=== PATIENT | male | born 1975 | race Caucasian/White ===

== ENCOUNTER → 2017-07-04 | Outpatient (CLI) | payer BC ==
[~2017-07-04] MED LIST: IOHEXOL 240 MG/ML 50ML VIAL. ONE; IOHEXOL 240 MG/ML 50ML VIAL. PO ONE; IOHEXOL 300 MG/ML 75 ML VIAL. IV ONE
--- NOTE | 2017-07-04 12:12 | RAD ---
Indication: Chronic abdominal pain, epigastric discomfort, right upper quadrant and left upper quadrant pain. History of hernia surgery years ago. Technique: CT abdomen and pelvis with 30 mL of Omnipaque 240 with multiplanar reformats. Comparison: Study from 2012 Findings: Heart is normal in size. No pericardial or pleural effusion. Clear lung bases. Scattered too small to characterize low attenuating foci seen in the liver likely cystic biliary hematomas. Spleen is nonenlarged and show no focal lesion. No radiopaque gallstones. Pancreas within normal limits. Adrenal glands show no nodularity. No hydronephrosis. 2.4 cm simple left renal cyst. No nephrolithiasis. No retroperitoneal or pelvic adenopathy. No bowel obstruction. Diffuse colonic diverticulosis. Normal appendix. Small omental fat-containing medical hernia. Bladder within normal limits. Prostate and seminal vesicles show no mass lesion. No suspicious bony lesions. Degenerative disc disease noted at L5-S1. Impression: 1. No acute findings. 2. Diffuse colonic diverticulosis without diverticulitis. PQRS Compliance Statement: One or more of the following individualized dose reduction techniques were utilized for this examination: 1. Automated exposure control 2. Adjustment of the mA and/or kV according to patient size 3. Use of iterative reconstruction technique
== END | disposition home or self-care (01) ==
LOC: CT 08:01
PROVIDERS: ATTEND Physician Assistant
DX: K57.30 Diverticulosis of large intestine without perforation or abscess without bleeding (principal); N28.1 Cyst of kidney, acquired; M47.897 Other spondylosis, lumbosacral region
CPT/HCPCS: 74177; Q9966; Q9967

== ENCOUNTER 2018-04-13 09:58 | Observation (INO) | payer BC ==
[~2018-04-13] VITALS: Ht 182.9 cm; Wt 84.9 kg
--- NOTE | 2018-04-13 10:14 | EKG ---
[address] [address] Test Date: 2018-04-13 Test Time: 10:09:24 Pat Name: JOBY ROBLEDO Department: Room: Gender: M [employer]el Seat [employer] Machine: : [id number] Requested By: ELIEL MARINA Order Number: [id number] Reading MD: James Mooney Measurements Intervals [place] Rate: 61 P: 54 LA: 138 QRS: 56 QRSD: 86 T: 62 QT: 392 QTc: 400 Interpretive Statements SINUS RHYTHM VENTRICULAR PREMATURE COMPLEX(ES) Electronically Signed On 04-17-2018 11:57:13 CDT by James Mooney
[2018-04-13 10:28] LABS: BASO % 0 % (0-3); EOS # 0.1 x10^3/uL (0.0-0.7); EOS % 1 % (0-3); HEMOGLOBIN 16.2 g/dL (13.0-17.5); LYMPH # 1.9 x10^3/uL (1.0-4.8); LYMPH % 25 % (24-48); MEAN CORPUSCULAR HEMOGLOBIN 31 pg (25-35); MEAN CORPUSCULAR HGB CONC 34 g/dL (31-37); MEAN CORPUSCULAR VOLUME 93 fL (79-100); MONO # 0.4 x10^3/uL (0.0-1.1); MONO % 6 % (0-9); NEUT # 4.9 x10^3uL (1.8-7.7); NEUT % 67 % (31-73); PLATELET COUNT 225 x10^3/uL (140-400); RED BLOOD COUNT 5.18 x10^6/uL (4.30-5.70); RED CELL DISTRIBUTION WIDTH 13.4 % (11.5-14.5); WHITE BLOOD COUNT 7.3 x10^3/uL (4.0-11.0)
[2018-04-13 10:50] LABS: ALBUMIN/GLOBULIN RATIO 1.1 (1.0-1.7); CALCIUM 9.5 mg/dL (8.5-10.1); CREATININE 0.9 mg/dL (0.7-1.3); GFR 93.5; POTASSIUM 4.3 mmol/L (3.5-5.1); TOTAL BILIRUBIN 0.8 mg/dL (0.2-1.0); TOTAL PROTEIN 7.5 g/dL (6.4-8.2)
--- NOTE | 2018-04-13 10:53 | RAD ---
EXAM: CHEST 1 VIEW History: Chest pain COMPARISON: None available. TECHNIQUE: Single portable radiograph of the chest FINDINGS: The cardiac silhouette is unremarkable. The lungs are clear bilaterally. The costophrenic sulci are clear and well demarcated. IMPRESSION: No radiographic evidence of an acute cardiopulmonary process. Electronically signed by: Kai Holman MD (04/13/2018 10:49 AM) [id number]
[2018-04-13 11:42] VITALS: BP 116/77
--- NOTE | 2018-04-13 14:56 | ED.ADGEN ---
Past History Past Medical History: No Pertinent History Past Surgical History: No Surgical History Additional Smoking Information: /2 PPD Alcohol Use: Rarely Drug Use: Marijuana Adult General Chief Complaint Chief Complaint Chest wall pain, palpitations HPI HPI Patient is a 42-year-old male presents with left-sided numbness and left arm with intermittent palpitations since yesterday. No shortness breath, nausea, sweats. No neck pain, reticular pain, motor weakness. No other acute symptoms or complaints. Patient is currently pain-free.[] Review of Systems Review of Systems ROS as per HPI. All other systems were reviewed and found to be within normal limits, except as documented in this note. Allergies Allergies Allergies Coded Allergies Type Severity Reaction Last Updated Verified No Known Drug Allergies 07/04/17 No Physical Exam Physical Exam Constitutional: Well developed, well nourished, no acute distress, non-toxic appearance. [] HENT: Normocephalic, atraumatic, bilateral external ears normal, oropharynx moist, no oral exudates, nose normal. [] Eyes: PERRLA, EOMI, conjunctiva normal, no discharge. [] Neck: Normal range of motion, no tenderness, supple, no stridor. [] Cardiovascular:Heart rate regular rhythm, no murmur, occasional ectopy [] Lungs & Thorax: Bilateral breath sounds clear to auscultation [] Abdomen: Bowel sounds normal, soft, no tenderness. [] Extremities: No tenderness, negative Homans signs. [] Neurologic: Alert and oriented X 3, normal motor function, normal sensory function, no focal deficits noted. [] Psychologic: Affect normal, judgement normal, mood normal. [] Current Patient Data Vital Signs Vital Signs Date Time Temp Pulse Resp B/P (MAP) Pulse Ox O2 Delivery O2 Flow Rate FiO2 04/13/18 11:13 61 16 114/66 (82) 97 Lab Results Laboratory Tests Test 04/13/18 10:17 White Blood Count 7.3 x10^3/uL (4.0-11.0) Red Blood Count 5.18 x10^6/uL (4.30-5.70) Hemoglobin 16.2 g/dL (13.0-17.5) Hematocrit 48.0 % (39.0-53.0) Mean Corpuscular Volume 93 fL (79-100) Mean Corpuscular Hemoglobin 31 pg (25-35) Mean Corpuscular Hemoglobin Concent 34 g/dL (31-37) Red Cell Distribution Width 13.4 % (11.5-14.5) Platelet Count 225 x10^3/uL (140-400) Neutrophils (%) (Auto) 67 % (31-73) Lymphocytes (%) (Auto) 25 % (24-48) Monocytes (%) (Auto) 6 % (0-9) Eosinophils (%) (Auto) 1 % (0-3) Basophils (%) (Auto) 0 % (0-3) Neutrophils # (Auto) 4.9 x10^3uL (1.8-7.7) Lymphocytes # (Auto) 1.9 x10^3/uL (1.0-4.8) Monocytes # (Auto) 0.4 x10^3/uL (0.0-1.1) Eosinophils # (Auto) 0.1 x10^3/uL (0.0-0.7) Basophils # (Auto) 0.0 x10^3/uL (0.0-0.2) Sodium Level 139 mmol/L (136-145) Potassium Level 4.3 mmol/L (3.5-5.1) Chloride Level 104 mmol/L (98-107) Carbon Dioxide Level 30 mmol/L (21-32) Anion Gap 5 (6-14) L Blood Urea Nitrogen 10 mg/dL (8-26) Creatinine 0.9 mg/dL (0.7-1.3) Estimated GFR (Cockcroft-Gault) 93.5 BUN/Creatinine Ratio 11 (6-20) Glucose Level 95 mg/dL (70-99) Calcium Level 9.5 mg/dL (8.5-10.1) Total Bilirubin 0.8 mg/dL (0.2-1.0) Aspartate Amino Transferase (AST) 19 U/L (15-37) Alanine Aminotransferase (ALT) 34 U/L (16-63) Alkaline Phosphatase 66 U/L (46-116) Troponin I Quantitative < 0.017 ng/mL (0-0.055) UB-Vux-Q-Type Natriuretic Peptide 61 pg/mL (0-124) Total Protein 7.5 g/dL (6.4-8.2) Albumin 4.0 g/dL (3.4-5.0) Albumin/Globulin Ratio 1.1 (1.0-1.7) EKG EKG [EKG: NAD ] Radiology/Procedures Radiology/Procedures CXR: NAD] Course & Med Decision Making Course & Med Decision Making Pertinent Labs and Imaging studies reviewed. (See chart for details) [No acute labs findings, ST segment elevation consistent with early repolarization. Will admit to the hospitalist service for further evaluation or tx. ] Final Impression Final Impression [1. Chest pain] Bia Disclaimer Dragon Disclaimer This electronic medical record was generated, in whole or in part, using a voice recognition dictation system. ELIEL MARINA DO Apr 13, 2018 14:56
[2018-04-13 16:38] VITALS: BP 125/72
--- NOTE | 2018-04-13 17:10 | PDOC2 ---
CONSULT Date of Admission DATE: 04/13/18 TIME: 17:05 Reason for Consult: cp History of Present Illness Mr Ritter is a 42 year old male seen by PCP with complaints of chest pain off and on with some arm numbness and tingling from elbow to hand. He was found to have PVCs on EKG and sent to ED for evaluation and admission. He reports dyspnea and racing of heart with minimal exertion over the last several weeks. He reports chest discomfort occasionally which is a dull left sided pain lasting only seconds to a minute without radiation or associated symptoms. He denies any correlation with exertion. He complains of mild numbness and tingling in his left arm from elbow to hand. 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 He denies any congestive symptoms , lightheadedness or syncope. Cardiovascular: No pertinent hx Pulmonary: No pertinent hx GI: No pertinent hx Heme/Onc: No pertinent hx Hepatobiliary: No pertinent hx Psych: No pertinent hx Musculoskeletal: No pertinent hx Rheumatologic: No pertinent hx Infectious disease: No pertinent hx ENT: No pertinent hx Renal/: No pertinent hx Endocrine: No pertinent hx Dermatology: No pertinent hx Past Surgical History no history Family History premature coronary disease on father side. Social History 1/2 ppd smoker, no significant ETOH, no significant illicit drug use Current Medications Current Medications Aspirin (Aspirin Enteric Coated) 81 mg DAILYWBKFT PO ; Start 04/14/18 at 08:00 Active Scripts Active Reported No Known Medications Prior To Admisstion (Info) Each 1 Each Allergies: Coded Allergies: No Known Drug Allergies (Unverified , 07/04/17) General: Alert, Oriented X3, Cooperative, No acute distress HEENT: Atraumatic, EOMI, Mucous membr. moist/pink Lungs: Clear to auscultation, Normal air movement Heart: Regular rate, Normal S1, Normal S2, Other (no gallops clicks or rubs) Abdomen: Normal bowel sounds, Soft, No tenderness Extremities: No cyanosis, No edema, Normal pulses Neuro: Normal speech, Strength at 5/5 X4 ext Psych/Mental Status: Mental status NL, Mood NL VITALS Vital Signs Date Time Temp Pulse Resp B/P (MAP) Pulse Ox O2 Delivery O2 Flow Rate FiO2 04/13/18 16:38 98.6 73 18 125/72 (89) 97 Room Air Labs Laboratory Tests Test 04/13/18 10:17 04/13/18 15:00 White Blood Count 7.3 x10^3/uL (4.0-11.0) Red Blood Count 5.18 x10^6/uL (4.30-5.70) Hemoglobin 16.2 g/dL (13.0-17.5) Hematocrit 48.0 % (39.0-53.0) Mean Corpuscular Volume 93 fL (79-100) Mean Corpuscular Hemoglobin 31 pg (25-35) Mean Corpuscular Hemoglobin Concent 34 g/dL (31-37) Red Cell Distribution Width 13.4 % (11.5-14.5) Platelet Count 225 x10^3/uL (140-400) Neutrophils (%) (Auto) 67 % (31-73) Lymphocytes (%) (Auto) 25 % (24-48) Monocytes (%) (Auto) 6 % (0-9) Eosinophils (%) (Auto) 1 % (0-3) Basophils (%) (Auto) 0 % (0-3) Neutrophils # (Auto) 4.9 x10^3uL (1.8-7.7) Lymphocytes # (Auto) 1.9 x10^3/uL (1.0-4.8) Monocytes # (Auto) 0.4 x10^3/uL (0.0-1.1) Eosinophils # (Auto) 0.1 x10^3/uL (0.0-0.7) Basophils # (Auto) 0.0 x10^3/uL (0.0-0.2) Sodium Level 139 mmol/L (136-145) Potassium Level 4.3 mmol/L (3.5-5.1) Chloride Level 104 mmol/L (98-107) Carbon Dioxide Level 30 mmol/L (21-32) Anion Gap 5 (6-14) Blood Urea Nitrogen 10 mg/dL (8-26) Creatinine 0.9 mg/dL (0.7-1.3) Estimated GFR (Cockcroft-Gault) 93.5 BUN/Creatinine Ratio 11 (6-20) Glucose Level 95 mg/dL (70-99) Calcium Level 9.5 mg/dL (8.5-10.1) Total Bilirubin 0.8 mg/dL (0.2-1.0) Aspartate Amino Transf (AST/SGOT) 19 U/L (15-37) Alanine Aminotransferase (ALT/SGPT) 34 U/L (16-63) Alkaline Phosphatase 66 U/L (46-116) Troponin I Quantitative < 0.017 ng/mL (0-0.055) < 0.017 ng/mL (0-0.055) NN-Qoc-P-Type Natriuretic Peptide 61 pg/mL (0-124) Total Protein 7.5 g/dL (6.4-8.2) Albumin 4.0 g/dL (3.4-5.0) Albumin/Globulin Ratio 1.1 (1.0-1.7) Images sinus rhythm with pvcs, no acute abn Assessment/Plan Chest pain - CE negative so far. echo and MPI in am if CE remains negative frequent PVCs - testing as above, outpatient MCT for burden. dyspnea on exertion - no evidence of heart failure arm numbness - ?radiculopathy, lateral epicondylitis due to repetitive motion with driving/backing a truck DEQUAN RAMOS [employer] D[employer]LLER Apr 13, 2018 17:10
--- NOTE | 2018-04-13 18:16 | CARD ---
MR#: [id number] Date of Study: 04/13/2018 Ordering Physician: DEQUAN RAMOS, Referring Physician: RAYRAY VERDIN Tech: Cheri Espino RDCS APPROVED REPORT EXAM: Two-dimensional and M-mode echocardiogram with Doppler and color Doppler. Other Information Quality : Good INDICATION Chest Pain RISK FACTORS Family History Smoking 2D DIMENSIONS RVDd2.4 (2.9-3.5cm)Left Atrium(2D)3.3 (1.6-4.0cm) IVSd0.9 (0.7-1.1cm)Aortic Root(2D)2.9 (2.0-3.7cm) LVDd5.4 (3.9-5.9cm)LVOT Diameter2.0 (1.8-2.4cm) PWd0.9 (0.7-1.1cm)LVDs4.4 (2.5-4.0cm) FS (%) 18.8 %SV54.2 ml Aortic Valve AoV Peak Soren.124.1cm/Afua Peak GR.6.2mmHg LVOT Peak Soren.104.4cm/sAVA (VMAX)2.62cm2 Mitral Valve MV E Bxkiwdae57.5cm/sMV DECEL [id number] MV A Cpfzpulf80.5cm/sE/A Ratio1.4 Tricuspid Valve TR P. Exuirckp196if/sRAP OOCMIDSU6ocMo TR Peak Gr.70zrPyTKFO70oeUg Pulmonary Vein S1 Aregnlhe81.9cm/sD2 Wlvosrrx64.3cm/s LEFT VENTRICLE The left ventricle is normal size. There is normal left ventricular wall thickness. Left ventricle sy stolic function is at the lower limit of normal. The Ejection Fraction is estimated at 50%. The left ventricular diastolic function and filling is normal for age. RIGHT VENTRICLE The right ventricle is normal size. The right ventricular systolic function is normal. ATRIA The left atrium size is normal. The right atrium size is normal. The interatrial septum is intact wit h no evidence for an atrial septal defect or patent foramen ovale as noted on 2-D or Doppler imaging. AORTIC VALVE The aortic valve is normal in structure and function. Doppler and Color Flow revealed no significant aortic regurgitation. There is no significant aortic valvular stenosis. MITRAL VALVE The anterior mitral valve leaflet is redundant but opens well. There is no evidence of mitral valve p rolapse. There is no mitral valve stenosis. Doppler and Color-flow revealed mild mitral regurgitation . TRICUSPID VALVE The tricuspid valve is normal in structure and function. Doppler and Color Flow revealed mild to mode rate tricuspid regurgitation. The PA pressure was estimated at 33 mmHg. There is no tricuspid valve s tenosis. PULMONIC VALVE The pulmonary valve is normal in structure and function. Doppler and Color Flow revealed trace to mil d pulmonic valvular regurgitation. There is no pulmonic valvular stenosis. GREAT VESSELS The aortic root is normal in size. The ascending aorta is normal in size. The IVC is normal in size a nd collapses >50% with inspiration. PERICARDIAL EFFUSION There is no evidence of significant pericardial effusion. Critical Notification Critical Value: No <Conclusion> The left ventricle is normal size. Left ventricle systolic function is at the lower limit of normal. The Ejection Fraction is estimated at 50%. There is no significant aortic valvular stenosis. Doppler and Color Flow revealed no significant aortic regurgitation. Doppler and Color-flow revealed mild mitral regurgitation. Doppler and Color Flow revealed mild to moderate tricuspid regurgitation. The PA pressure was estimated at 33 mmHg. Signed by : Familia López MD Electronically Approved : 04/13/2018 18:15:39
--- NOTE | 2018-04-13 18:58 | PDOC1 ---
History and Physical Date of Admission: Date of Admission: 04/13/18 Chief Complaint: Chief Complain: Chest pain and dyspnea HPI: HPI: 42-year-old male with no significant medical history presented to the emergency department complaining of one day left sided chest pain with dyspnea and palpitations accompanied by left arm tingling and numbness. Reported dyspnea and palpitations with minimal exertion. He was asymptomatic upon arrival to the emergency department. As stated he has no significant past medical history, he has family history of coronary artery disease and is a one half pack a day smoker. His EKG was sinus rhythm with PVCs no acute abnormalities labs and plain films of the chest all unremarkable. On my evaluation he is sitting up in bed watching television with no apparent distress. He denies any symptoms since admission. Echocardiogram revealed EF of 50% and he is scheduled for MPI in am. Past Medical History: Cardiovascular: No pertinent hx Pulmonary: No pertinent hx GI: No pertinent hx Heme/Onc: No pertinent hx Hepatobiliary: No pertinent hx Psych: No pertinent hx Musculoskeletal: No pertinent hx Rheumatologic: No pertinent hx Infectious disease: No pertinent hx Endocrine: No pertinent hx Dermatology: No pertinent hx Past Surgical History: PSH: No surgical history Family History: Family History: Coronary Artery Disease Social History: Smoke: <1 pack per day Alcohol: none Drugs: None Allergies: Allergies: Coded Allergies: No Known Drug Allergies (Unverified , 07/04/17) Current Medications: Current Medications: Current Medications Medications (Trade) Dose Ordered Sig/Evrena Start Time Stop Time Status Last Admin Dose Admin Aspirin (Aspirin Enteric Coated) 81 mg DAILYWBKFT 04/14/18 08:00 ROS: ROS: Constitutional: Denies fever or chills [] Eyes: Denies change in visual acuity, redness, or eye pain [] HENT: Denies nasal congestion or sore throat [] Respiratory: Denies cough wheeze Cardiovascular: No additional information not addressed in HPI [] GI: Denies abdominal pain, nausea, vomiting, bloody stools or diarrhea [] : Denies dysuria or hematuria [] Musculoskeletal: Denies back pain or joint pain [] Integument: Denies rash or skin lesions [] Neurologic: Denies headache, focal weakness or sensory changes aside from history of present illness [] Endocrine: Denies polyuria or polydipsia [] All other systems were reviewed and found to be within normal limits, except as documented in this note. PE: PE: Gen.: Alert, pleasant, no apparent distress HEENT: Normocephalic atraumatic, PERRLA EOMI, no scleral icterus, oral mucosa pink and moist Neck: Supple, no lymphadenopathy, nontender Cardiovascular: Normal S1 and S2 no murmurs Pulmonary: Lungs are clear bilaterally with good air movement no respiratory distress Abdomen: Soft nontender non-distended, bowel sounds present no masses Extremities: No clubbing, cyanosis or edema Neuro: Alert and oriented 3, cranial nerves II through XII grossly intact, no lateralizing neuro deficits Skin: Warm, dry Vitals: Vitals: Vital Signs Date Time Temp Pulse Resp B/P (MAP) Pulse Ox O2 Delivery O2 Flow Rate FiO2 04/13/18 16:38 98.6 73 18 125/72 (89) 97 Room Air Labs: Labs: Laboratory Tests Test 04/13/18 10:17 04/13/18 15:00 04/13/18 17:11 White Blood Count 7.3 x10^3/uL (4.0-11.0) Red Blood Count 5.18 x10^6/uL (4.30-5.70) Hemoglobin 16.2 g/dL (13.0-17.5) Hematocrit 48.0 % (39.0-53.0) Mean Corpuscular Volume 93 fL (79-100) Mean Corpuscular Hemoglobin 31 pg (25-35) Mean Corpuscular Hemoglobin Concent 34 g/dL (31-37) Red Cell Distribution Width 13.4 % (11.5-14.5) Platelet Count 225 x10^3/uL (140-400) Neutrophils (%) (Auto) 67 % (31-73) Lymphocytes (%) (Auto) 25 % (24-48) Monocytes (%) (Auto) 6 % (0-9) Eosinophils (%) (Auto) 1 % (0-3) Basophils (%) (Auto) 0 % (0-3) Neutrophils # (Auto) 4.9 x10^3uL (1.8-7.7) Lymphocytes # (Auto) 1.9 x10^3/uL (1.0-4.8) Monocytes # (Auto) 0.4 x10^3/uL (0.0-1.1) Eosinophils # (Auto) 0.1 x10^3/uL (0.0-0.7) Basophils # (Auto) 0.0 x10^3/uL (0.0-0.2) Sodium Level 139 mmol/L (136-145) Potassium Level 4.3 mmol/L (3.5-5.1) Chloride Level 104 mmol/L (98-107) Carbon Dioxide Level 30 mmol/L (21-32) Anion Gap 5 (6-14) Blood Urea Nitrogen 10 mg/dL (8-26) Creatinine 0.9 mg/dL (0.7-1.3) Estimated GFR (Cockcroft-Gault) 93.5 BUN/Creatinine Ratio 11 (6-20) Glucose Level 95 mg/dL (70-99) Calcium Level 9.5 mg/dL (8.5-10.1) Total Bilirubin 0.8 mg/dL (0.2-1.0) Aspartate Amino Transf (AST/SGOT) 19 U/L (15-37) Alanine Aminotransferase (ALT/SGPT) 34 U/L (16-63) Alkaline Phosphatase 66 U/L (46-116) Troponin I Quantitative < 0.017 ng/mL (0-0.055) < 0.017 ng/mL (0-0.055) YZ-Oqf-B-Type Natriuretic Peptide 61 pg/mL (0-124) Total Protein 7.5 g/dL (6.4-8.2) Albumin 4.0 g/dL (3.4-5.0) Albumin/Globulin Ratio 1.1 (1.0-1.7) Magnesium Level 2.1 mg/dL (1.8-2.4) VTE Prophylaxis: VTE Prophylaxis Devices: No (patient is ambulatory) VTE Pharmacological Prophylaxi: No Assessment/Plan: A/P: Atypical chest pain with dyspnea: If third cardiac enzyme negative stress test in a.m. Tobacco abuse: Encouraged to DC smoking RAYRAY VERDIN DO Apr 13, 2018 18:58
[2018-04-13 19:10] VITALS: BP 116/73
[2018-04-13 22:34] VITALS: BP 98/61
[2018-04-14 05:35] VITALS: BP 102/65
[2018-04-14 06:07] LABS: BASO % 0 % (0-3); EOS # 0.1 x10^3/uL (0.0-0.7); EOS % 2 % (0-3); HEMATOCRIT 43.8 % (39.0-53.0); LYMPH # 2.1 x10^3/uL (1.0-4.8); LYMPH % 32 % (24-48); MEAN CORPUSCULAR HEMOGLOBIN 32 pg (25-35); MEAN CORPUSCULAR HGB CONC 34 g/dL (31-37); MEAN CORPUSCULAR VOLUME 92 fL (79-100); MONO # 0.5 x10^3/uL (0.0-1.1); MONO % 7 % (0-9); NEUT % 59 % (31-73); PLATELET COUNT 202 x10^3/uL (140-400); RED BLOOD COUNT 4.75 x10^6/uL (4.30-5.70); RED CELL DISTRIBUTION WIDTH 13.2 % (11.5-14.5); WHITE BLOOD COUNT 6.7 x10^3/uL (4.0-11.0)
[2018-04-14 06:20] LABS: ALBUMIN 3.4 g/dL (3.4-5.0); CALCIUM 8.8 mg/dL (8.5-10.1); CREATININE 0.9 mg/dL (0.7-1.3); GFR 93.5; TOTAL BILIRUBIN 0.6 mg/dL (0.2-1.0); TOTAL PROTEIN 6.7 g/dL (6.4-8.2)
[2018-04-14] MEDS ORDERED: ASPIRIN ENTERIC COATED 81 MG TABLET.DR. PO SCH (08:00)
--- NOTE | 2018-04-14 09:17 | PDOC ---
PROGRESS NOTES Assessment 1. Chest pain, atypical 2. dyspnea on exertion 3. frequent PVCs Normal LV function and wall motion by echo. AR ruled out. MPI pending. If normal ok from CV perspective to discharge with outpatient MCT for PVC burden and follow up on 05/17/18 in office. Subjective No chest pain, no dyspnea, occasional palpitations, no lightheadedness or syncope Objective Vital Signs Date Time Temp Pulse Resp B/P (MAP) Pulse Ox O2 Delivery O2 Flow Rate FiO2 04/14/18 07:54 Room Air 04/14/18 05:35 97.5 58 18 102/65 (77) 97 Intake and Output 04/14/18 07:00 Intake Total 1680 ml Balance 1680 ml Intake Oral 1680 ml # Voids 6 # Bowel Movements 1 Abdomen: Normal bowel sounds, Soft, No tenderness Heart: Normal S1, Normal S2, Other (irregular without gallops, clicks or rubs) Extremities: No cyanosis, No edema, Normal pulses General: Alert, Oriented X3, Cooperative, No acute distress HEENT: Atraumatic, EOMI, Mucous membr. moist/pink Lungs: Clear to auscultation, Normal air movement Neuro: Normal speech, Strength at 5/5 X4 ext Psych/Mental Status: Mental status NL, Mood NL Review of Relevant I have reviewed the following items nikolay (where applicable) has been applied. Labs Laboratory Tests Test 04/13/18 10:17 04/13/18 15:00 04/13/18 17:11 04/13/18 21:14 White Blood Count 7.3 x10^3/uL (4.0-11.0) Red Blood Count 5.18 x10^6/uL (4.30-5.70) Hemoglobin 16.2 g/dL (13.0-17.5) Hematocrit 48.0 % (39.0-53.0) Mean Corpuscular Volume 93 fL (79-100) Mean Corpuscular Hemoglobin 31 pg (25-35) Mean Corpuscular Hemoglobin Concent 34 g/dL (31-37) Red Cell Distribution Width 13.4 % (11.5-14.5) Platelet Count 225 x10^3/uL (140-400) Neutrophils (%) (Auto) 67 % (31-73) Lymphocytes (%) (Auto) 25 % (24-48) Monocytes (%) (Auto) 6 % (0-9) Eosinophils (%) (Auto) 1 % (0-3) Basophils (%) (Auto) 0 % (0-3) Neutrophils # (Auto) 4.9 x10^3uL (1.8-7.7) Lymphocytes # (Auto) 1.9 x10^3/uL (1.0-4.8) Monocytes # (Auto) 0.4 x10^3/uL (0.0-1.1) Eosinophils # (Auto) 0.1 x10^3/uL (0.0-0.7) Basophils # (Auto) 0.0 x10^3/uL (0.0-0.2) Sodium Level 139 mmol/L (136-145) Potassium Level 4.3 mmol/L (3.5-5.1) Chloride Level 104 mmol/L (98-107) Carbon Dioxide Level 30 mmol/L (21-32) Anion Gap 5 (6-14) Blood Urea Nitrogen 10 mg/dL (8-26) Creatinine 0.9 mg/dL (0.7-1.3) Estimated GFR (Cockcroft-Gault) 93.5 BUN/Creatinine Ratio 11 (6-20) Glucose Level 95 mg/dL (70-99) Calcium Level 9.5 mg/dL (8.5-10.1) Total Bilirubin 0.8 mg/dL (0.2-1.0) Aspartate Amino Transf (AST/SGOT) 19 U/L (15-37) Alanine Aminotransferase (ALT/SGPT) 34 U/L (16-63) Alkaline Phosphatase 66 U/L (46-116) Troponin I Quantitative < 0.017 ng/mL (0-0.055) < 0.017 ng/mL (0-0.055) < 0.017 ng/mL (0-0.055) GR-Jhj-C-Type Natriuretic Peptide 61 pg/mL (0-124) Total Protein 7.5 g/dL (6.4-8.2) Albumin 4.0 g/dL (3.4-5.0) Albumin/Globulin Ratio 1.1 (1.0-1.7) Magnesium Level 2.1 mg/dL (1.8-2.4) Test 04/14/18 05:46 White Blood Count 6.7 x10^3/uL (4.0-11.0) Red Blood Count 4.75 x10^6/uL (4.30-5.70) Hemoglobin 15.0 g/dL (13.0-17.5) Hematocrit 43.8 % (39.0-53.0) Mean Corpuscular Volume 92 fL (79-100) Mean Corpuscular Hemoglobin 32 pg (25-35) Mean Corpuscular Hemoglobin Concent 34 g/dL (31-37) Red Cell Distribution Width 13.2 % (11.5-14.5) Platelet Count 202 x10^3/uL (140-400) Neutrophils (%) (Auto) 59 % (31-73) Lymphocytes (%) (Auto) 32 % (24-48) Monocytes (%) (Auto) 7 % (0-9) Eosinophils (%) (Auto) 2 % (0-3) Basophils (%) (Auto) 0 % (0-3) Neutrophils # (Auto) 4.0 x10^3uL (1.8-7.7) Lymphocytes # (Auto) 2.1 x10^3/uL (1.0-4.8) Monocytes # (Auto) 0.5 x10^3/uL (0.0-1.1) Eosinophils # (Auto) 0.1 x10^3/uL (0.0-0.7) Basophils # (Auto) 0.0 x10^3/uL (0.0-0.2) Sodium Level 139 mmol/L (136-145) Potassium Level 4.0 mmol/L (3.5-5.1) Chloride Level 106 mmol/L (98-107) Carbon Dioxide Level 33 mmol/L (21-32) Anion Gap 0 (6-14) Blood Urea Nitrogen 11 mg/dL (8-26) Creatinine 0.9 mg/dL (0.7-1.3) Estimated GFR (Cockcroft-Gault) 93.5 BUN/Creatinine Ratio 12 (6-20) Glucose Level 98 mg/dL (70-99) Calcium Level 8.8 mg/dL (8.5-10.1) Total Bilirubin 0.6 mg/dL (0.2-1.0) Aspartate Amino Transf (AST/SGOT) 15 U/L (15-37) Alanine Aminotransferase (ALT/SGPT) 31 U/L (16-63) Alkaline Phosphatase 59 U/L (46-116) Total Protein 6.7 g/dL (6.4-8.2) Albumin 3.4 g/dL (3.4-5.0) Albumin/Globulin Ratio 1.0 (1.0-1.7) Medications Current Medications Aspirin (Aspirin Enteric Coated) 81 mg DAILYWBKFT PO ; Start 04/14/18 at 08:00 Active Scripts Active Reported No Known Medications Prior To Admisstion (Info) Each 1 Each Vitals/I & O Vital Sign - Last 24 Hours 04/13/18 04/13/18 04/13/18 04/13/18 10:15 10:30 11:13 11:42 Temp 98.1 Pulse 67 60 61 62 Resp 16 16 16 18 B/P (MAP) 108/62 (77) 114/66 (82) 116/77 (90) Pulse Ox 99 98 97 97 O2 Delivery Room Air 04/13/18 04/13/18 04/13/18 04/13/18 13:38 16:38 19:10 19:10 Temp 98.6 98.2 Pulse 73 62 Resp 18 18 B/P (MAP) 125/72 (89) 116/73 (87) Pulse Ox 97 96 O2 Delivery Room Air Room Air Room Air Room Air 04/13/18 04/14/18 04/14/18 22:34 05:35 07:54 Temp 98.6 97.5 Pulse 59 58 Resp 18 18 B/P (MAP) 98/61 (73) 102/65 (77) Pulse Ox 97 97 O2 Delivery Room Air Room Air Room Air Intake and Output 04/13/18 04/13/18 04/14/18 15:00 23:00 07:00 Intake Total 240 ml 1440 ml 0 ml Balance 240 ml 1440 ml 0 ml DEQUAN RAMOS APRN Apr 14, 2018 09:17
--- NOTE | 2018-04-14 10:02 | PDOC ---
PROGRESS NOTES Assessment Duplicate Objective Vital Signs Date Time Temp Pulse Resp B/P (MAP) Pulse Ox O2 Delivery O2 Flow Rate FiO2 04/14/18 07:54 Room Air 04/14/18 05:35 97.5 58 18 102/65 (77) 97 Intake and Output 04/14/18 07:00 Intake Total 1680 ml Balance 1680 ml Intake Oral 1680 ml # Voids 6 # Bowel Movements 1 Review of Relevant I have reviewed the following items nikolay (where applicable) has been applied. Labs Laboratory Tests Test 04/13/18 10:17 04/13/18 15:00 04/13/18 17:11 04/13/18 21:14 White Blood Count 7.3 x10^3/uL (4.0-11.0) Red Blood Count 5.18 x10^6/uL (4.30-5.70) Hemoglobin 16.2 g/dL (13.0-17.5) Hematocrit 48.0 % (39.0-53.0) Mean Corpuscular Volume 93 fL (79-100) Mean Corpuscular Hemoglobin 31 pg (25-35) Mean Corpuscular Hemoglobin Concent 34 g/dL (31-37) Red Cell Distribution Width 13.4 % (11.5-14.5) Platelet Count 225 x10^3/uL (140-400) Neutrophils (%) (Auto) 67 % (31-73) Lymphocytes (%) (Auto) 25 % (24-48) Monocytes (%) (Auto) 6 % (0-9) Eosinophils (%) (Auto) 1 % (0-3) Basophils (%) (Auto) 0 % (0-3) Neutrophils # (Auto) 4.9 x10^3uL (1.8-7.7) Lymphocytes # (Auto) 1.9 x10^3/uL (1.0-4.8) Monocytes # (Auto) 0.4 x10^3/uL (0.0-1.1) Eosinophils # (Auto) 0.1 x10^3/uL (0.0-0.7) Basophils # (Auto) 0.0 x10^3/uL (0.0-0.2) Sodium Level 139 mmol/L (136-145) Potassium Level 4.3 mmol/L (3.5-5.1) Chloride Level 104 mmol/L (98-107) Carbon Dioxide Level 30 mmol/L (21-32) Anion Gap 5 (6-14) Blood Urea Nitrogen 10 mg/dL (8-26) Creatinine 0.9 mg/dL (0.7-1.3) Estimated GFR (Cockcroft-Gault) 93.5 BUN/Creatinine Ratio 11 (6-20) Glucose Level 95 mg/dL (70-99) Calcium Level 9.5 mg/dL (8.5-10.1) Total Bilirubin 0.8 mg/dL (0.2-1.0) Aspartate Amino Transf (AST/SGOT) 19 U/L (15-37) Alanine Aminotransferase (ALT/SGPT) 34 U/L (16-63) Alkaline Phosphatase 66 U/L (46-116) Troponin I Quantitative < 0.017 ng/mL (0-0.055) < 0.017 ng/mL (0-0.055) < 0.017 ng/mL (0-0.055) UW-Fzw-G-Type Natriuretic Peptide 61 pg/mL (0-124) Total Protein 7.5 g/dL (6.4-8.2) Albumin 4.0 g/dL (3.4-5.0) Albumin/Globulin Ratio 1.1 (1.0-1.7) Magnesium Level 2.1 mg/dL (1.8-2.4) Test 04/14/18 05:46 White Blood Count 6.7 x10^3/uL (4.0-11.0) Red Blood Count 4.75 x10^6/uL (4.30-5.70) Hemoglobin 15.0 g/dL (13.0-17.5) Hematocrit 43.8 % (39.0-53.0) Mean Corpuscular Volume 92 fL (79-100) Mean Corpuscular Hemoglobin 32 pg (25-35) Mean Corpuscular Hemoglobin Concent 34 g/dL (31-37) Red Cell Distribution Width 13.2 % (11.5-14.5) Platelet Count 202 x10^3/uL (140-400) Neutrophils (%) (Auto) 59 % (31-73) Lymphocytes (%) (Auto) 32 % (24-48) Monocytes (%) (Auto) 7 % (0-9) Eosinophils (%) (Auto) 2 % (0-3) Basophils (%) (Auto) 0 % (0-3) Neutrophils # (Auto) 4.0 x10^3uL (1.8-7.7) Lymphocytes # (Auto) 2.1 x10^3/uL (1.0-4.8) Monocytes # (Auto) 0.5 x10^3/uL (0.0-1.1) Eosinophils # (Auto) 0.1 x10^3/uL (0.0-0.7) Basophils # (Auto) 0.0 x10^3/uL (0.0-0.2) Sodium Level 139 mmol/L (136-145) Potassium Level 4.0 mmol/L (3.5-5.1) Chloride Level 106 mmol/L (98-107) Carbon Dioxide Level 33 mmol/L (21-32) Anion Gap 0 (6-14) Blood Urea Nitrogen 11 mg/dL (8-26) Creatinine 0.9 mg/dL (0.7-1.3) Estimated GFR (Cockcroft-Gault) 93.5 BUN/Creatinine Ratio 12 (6-20) Glucose Level 98 mg/dL (70-99) Calcium Level 8.8 mg/dL (8.5-10.1) Total Bilirubin 0.6 mg/dL (0.2-1.0) Aspartate Amino Transf (AST/SGOT) 15 U/L (15-37) Alanine Aminotransferase (ALT/SGPT) 31 U/L (16-63) Alkaline Phosphatase 59 U/L (46-116) Total Protein 6.7 g/dL (6.4-8.2) Albumin 3.4 g/dL (3.4-5.0) Albumin/Globulin Ratio 1.0 (1.0-1.7) Medications Current Medications Aspirin (Aspirin Enteric Coated) 81 mg DAILYWBKFT PO ; Start 04/14/18 at 08:00 Active Scripts Active Reported No Known Medications Prior To Admisstion (Info) Each 1 Each Vitals/I & O Vital Sign - Last 24 Hours 04/13/18 04/13/18 04/13/18 04/13/18 10:15 10:30 11:13 11:42 Temp 98.1 Pulse 67 60 61 62 Resp 16 16 16 18 B/P (MAP) 108/62 (77) 114/66 (82) 116/77 (90) Pulse Ox 99 98 97 97 O2 Delivery Room Air 04/13/18 04/13/18 04/13/18 04/13/18 13:38 16:38 19:10 19:10 Temp 98.6 98.2 Pulse 73 62 Resp 18 18 B/P (MAP) 125/72 (89) 116/73 (87) Pulse Ox 97 96 O2 Delivery Room Air Room Air Room Air Room Air 04/13/18 04/14/18 04/14/18 22:34 05:35 07:54 Temp 98.6 97.5 Pulse 59 58 Resp 18 18 B/P (MAP) 98/61 (73) 102/65 (77) Pulse Ox 97 97 O2 Delivery Room Air Room Air Room Air Intake and Output 04/13/18 04/13/18 04/14/18 15:00 23:00 07:00 Intake Total 240 ml 1440 ml 0 ml Balance 240 ml 1440 ml 0 ml DEQUAN RAMOS [employer] Apr 14, 2018 10:02
[2018-04-14 11:08] VITALS: BP 101/69
--- NOTE | 2018-04-14 12:27 | RAD ---
MR#: [id number] Date of Study: 04/14/2018 Ordering Physician: DEQUAN RAMOS, Referring Physician: LAUREN WALKER Tech: RT Dominga (Juan Carlos) (N) APPROVED REPORT Test Type: Exercise Stress Nurse/Tech: RT Dominga (Juan Carlos) (N) Test Indications: chest pain, frequent PVC's Cardiac History: family history Medications: see EHR Medical History: see EHR Resting ECG: Sinus rhythm, PVC's nonspecific changes Resting Heart Rate: 64 bpm Resting Blood Pressure: 118/70mmHg Pretest Chest Pain: None Nurse/Tech Notes Consent: The procedure was explained to the patient in lay terms. Informed consent was witnessed. Malcolm eout was entered into [employer]. History and Stress Test performed by RT Dominga (Juan Carlos) (N) POST EXERCISE Reason for Termination: Fatigue Target HR: Yes Max HR: 160 bpm 89%% of Maximum Predicted HR: 180 bpm Exercise duration: 10:30 min:sec, 4 Stage Exercise capacity: 13.4METs Max Blood Pressure: 141/36mmHg Chest Pain: No. INTERPRETATION Stress EKG Conclusion: The resting EKG shows a sinus rhythm with nonspecific ST-T wave changes and PV Cs. The stress EKG shows no significant changes from baseline and resolution of the patient's PVCs. No EKG evidence of stressed induced ischemia. Imaging Protocol IMAGE PROTOCOL: Rest Tc-99m/stress Tc-99m 1 day Rest: Stress: Viability: Radiopharm.Tc99m [id number] Sestamibi Dose10.6mCi 33.1mCi Duration 20min. 15min. Img Date 04/14/2018 04/14/2018 Inj-Img [id number]. 60min. Rest Admin Site:IV - Right ForearmAdministrator: RT Dominga (Juan Carlos)(N) Stress Admin Site: IV - Right ForearmAdministrator: RT Dominga (Juan Carlos)(N) STRESS DATA End Diast. Vol.149.0mlAv. Heart Rate70.0bpm LVEDV index BSA3.0mlCardiac Output0.1L/min End Syst. Vol.56.0mlCO Index BSA6.5L/min LVESV index BSA1.0mlMyocardial Lwbt584.0g Eject. Kkxkzcbx50.0% Stress Rates Pk. Fill Rate2.69EDV/secLVtime Pk. Fill 117.32msec Pk. Empty Rate3.32ESV/secLVtime Pk. Xkuxx178.80msec 1/3 Pk. Fill1.71EDV/sec Stress Scores Regional WT0.00Summed WT0.00 Regional WM0.00Summed WM0.00 LV Perfusion The stress scans showed no significant defects. The rest scans showed no significant defects. Nuclear imaging shows no reversible ischemia or infarct. Wall Motion Left ventricular systolic function is normal with an ejection fraction of 62%. LV Perf. Quant 17 Seg. SSS0.00 17 Seg. SRS1.00 17 Seg. SDS0.00 Stress Defect Extent (% LAD)0.00Rest Defect Extent (% LAD)0.00Rev. Defect Extent (% LAD)0.00 Stress Defect Extent (% LCX) 0.00Rest Defect Extent (% LCX)0.00Rev. Defect Extent (% LCX)0.00 Stress Defect Extent (% RCA)0.00Rest Defect Extent (% RCA)0.00Rev. Defect Extent (% RCA)0.00 Stress Defect Extent (% KIMANI)0.00Rest Defect Extent (% KIMANI)0.00Rev. Defect Extent (% KIMANI)0.00 Conclusion 1. Good exercise tolerance with the patient walking for 10 minutes and 30 seconds on a Jan protocol . 2. No reported chest pain with exertion. 3. No EKG evidence of stress-induced ischemia. 4. Nuclear imaging shows no reversible ischemia or infarct. 5. Normal left ventricular systolic function with an ejection fraction of 62%. 6. Low risk treadmill nuclear stress test. Signed by : Familia López MD Electronically Approved : 04/14/2018 12:26:02
--- NOTE | 2018-04-14 20:44 | DS ---
DATE OF DISCHARGE: 04/13/2018 HISTORY OF PRESENT ILLNESS: The patient is a 42-year-old male patient who came to the Emergency Room complaining of chest pain off and on with some arm numbness and tingling from elbow to hand. He was found to have PVCs and EKGs, and sent to Emergency Room Department for evaluation and admission. He reports dyspnea and racing of heart with minimal exertion over the last several weeks. He reports chest discomfort occasionally described as a dull left-sided pain lasting only seconds to a minute without radiation or associated symptoms. He denies any correlation with exertion. He complains of mild numbness and tingling in his left arm from elbow to the hand. 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 He denies any congestive symptoms. He was evaluated in the Emergency Room, has had 3 sets of cardiac enzymes that were negative. All of them showed troponin to be less than 0.017. He underwent stress test this morning, which basically read as good exercise tolerance with the patient walking for 10 minutes and 30 seconds on a Jan protocol. He reported no chest pain on exertion, no EKG evidence of stress-induced ischemia. Nuclear imaging showed no reversible ischemia or infarct. He has normal left ventricular systolic function, ejection fraction of 62%. The Cardiology team advised the patient can be discharged home. PHYSICAL EXAMINATION GENERAL: When I examined him this afternoon, he looked well and was clearly in no apparent respiratory distress. No pallor, jaundice, cyanosis, or thyromegaly. No jugular venous distension. No limb edema. VITAL SIGNS: His heart rate was 76, blood pressure was 101/69, temperature was 98.8, respiratory rate was 18 and oxygen saturation was 100%. HEAD, EYES, EARS, NOSE AND THROAT: Showed normocephalic, atraumatic. NECK: Supple. HEART: Showed normal first and second heart sounds with no gallop, rub or murmur. CHEST: Clear to auscultation. No crepitation or rhonchi. ABDOMEN: Distended, soft, nontender. NEUROLOGIC: He was awake, alert, responding appropriately. EXTREMITIES: Intact. He moves extremities without difficulty. LABORATORY DATA: Showed a white cell count of 6700, hemoglobin 15, hematocrit 44, MCV 92, and platelet count 202,000. His chemistry showed a serum sodium 139, potassium 4, chloride 106, bicarbonate 33, anion gap of 1, BUN 11, creatinine 0.9, estimated GFR was 94 mL per minute. His glucose 98, calcium was 8.8. Total bilirubin, AST, ALT, alkaline phosphatase were normal. Total protein was 6.7, albumin 3.4, magnesium was 2.1. The patient has 3 sets of cardiac enzymes, all negative, showed troponin to be less than 0.017. His nuclear stress test is unremarkable and the patient was discharged home. FINAL DISCHARGE DIAGNOSES: Chest pain, myocardial infarction ruled out, multiple premature ventricular contractions; however, all his electrolytes including magnesium and potassium were normal. FAISAL FLORES MD DR: LIVIER/lata JOB#: [id number] / [id number]
== END 2018-04-14 13:28 | disposition home or self-care (01) ==
LOC: ER 09:58 → 1 SOUTH 11:32
PROVIDERS: ADMIT Neuromusculoskeletal Medicine & OMM; ATTEND Neuromusculoskeletal Medicine & OMM
DX: R07.89 Other chest pain (principal); R20.0 Anesthesia of skin; F17.210 Nicotine dependence, cigarettes, uncomplicated; I49.3 Ventricular premature depolarization; Z82.49 Family history of ischemic heart disease and other diseases of the circulatory system
CPT/HCPCS: 36415; 71045; 78452; 80053; 80061; 83735; 83880; 84443; 84484; 85025; 93005; 93017; 93306; 99285; 99406; A9500; G0378; 96374; 96376; G0379